=== PATIENT | male | born 1970 | race African-American/Black ===

== ENCOUNTER 2020-07-27 00:57 | Emergency (ER) | payer OTHER ==
[~2020-07-27] VITALS: Ht 180.3 cm; Wt 76.2 kg
[2020-07-27] MEDS ORDERED: GRISEOFULVIN U250 MG PO (01:17)
[2020-07-27 01:32] VITALS: BP 121/72
== END 2020-07-27 01:33 | disposition home or self-care (01) ==
LOC: ER 00:57
DX: B35.1 Tinea unguium (principal)

== ENCOUNTER 2020-12-24 18:43 | Emergency (ER) | payer OTHER ==
[~2020-12-24] VITALS: Ht 180.3 cm; Wt 72.6 kg
[~2020-12-24 18:43] MED LIST: GRISEOFULVIN U250 MG PO
[2020-12-24 20:57] LABS: URINE BILIRUBIN NEGATIVE (Negative); URINE BLOOD NEGATIVE (Negative); URINE CLARITY CLEAR; URINE COLOR YELLOW; URINE GLUCOSE-RANDOM* NEGATIVE (Negative); URINE KETONES NEGATIVE (Negative); URINE LEUKOCYTES-REFLEX NEGATIVE (Negative); URINE NITRITE-REFLEX NEGATIVE (Negative); URINE PROTEIN (DIPSTICK) NEGATIVE (Negative)
[2020-12-24] MEDS ORDERED: ZANAFLEX4 MG PO (21:39)
[2020-12-24] MEDS ORDERED: MEDROLDOSEPACK PO (21:39)
[2020-12-24] MEDS ORDERED: MOBIC7.5 MG PO (21:39)
[2020-12-24 21:54] VITALS: BP 155/97
== END 2020-12-24 21:57 | disposition home or self-care (01) ==
LOC: ER 18:43
PROVIDERS: Student in an Organized Health Care Education/Training Program
DX: M54.16 Radiculopathy, lumbar region (principal)

== ENCOUNTER 2021-01-20 04:17 | Emergency (ER) | payer OTHER ==
[~2021-01-20] VITALS: Ht 180.3 cm; Wt 72.6 kg
[~2021-01-20 04:17] MED LIST changes: +MEDROLDOSEPACK PO; +MOBIC7.5 MG PO; +ZANAFLEX4 MG PO
[2021-01-20 07:18] VITALS: BP 129/88
== END 2021-01-20 06:30 | disposition home or self-care (01) ==
LOC: ER 04:17
PROVIDERS: Emergency Medicine
DX: J02.9 Acute pharyngitis, unspecified (principal); Z20.822 Contact with and (suspected) exposure to COVID-19; J06.9 Acute upper respiratory infection, unspecified